=== PATIENT | female | born 1985 | race Caucasian/White ===

== ENCOUNTER 2018-09-14 17:39 | Emergency (ER) | payer MEDICAID, SELFPAY ==
[2018-09-14 17:41] VITALS: BP 135/72; PULSE 118; RESP 20; TEMP 36.6; O2SAT 98; BMI 24.9
--- NOTE | 2018-09-14 17:45 | EKG12_ITS ---
Test Reason : SOB Blood Pressure : / mmHG Vent. Rate : 113 BPM Atrial Rate : 113 BPM P-R Int : 156 ms QRS Dur : 088 ms QT Int : 340 ms P-R-T Axes : 060 049 -03 degrees QTc Int : 466 ms Sinus tachycardia Nonspecific T wave abnormality Abnormal ECG Confirmed by MIHAELA GLOVER, BROOKLYNN ([id number]), desk editor DUC CUELLAR ([id number]) on 09/17/2018 1:37:38 PM Referred By: Confirmed By:BROOKLYNN CHAIREZ MD
--- NOTE | 2018-09-14 17:46 | RAD_ITS ---
STUDY: X-RAY CHEST REASON FOR EXAM: Female, 33 years old. Previous PE. Short of breath. TECHNIQUE: Frontal and lateral views of the chest. COMPARISON: None. FINDINGS: The lungs are clear and expanded. There is no demonstrated pleural abnormality. Normal size heart. Normal mediastinum and chandana. Normal visualized pulmonary arteries. Normal visualized aortic arch and descending thoracic aorta. Normal visualized thoracic spine. Normal visualized ribs, clavicles, and shoulders. There is no demonstrated abnormality of the visualized soft tissue structures of the upper abdomen. RAD/Chest PA and Lateral IMPRESSION: Normal x-ray examination of the chest. Electronically Signed: Ashok Santos MD at 18:24 EST , Service support ,
--- NOTE | 2018-09-14 17:52 | NURSING ---
NO OLD EKGS
--- NOTE | 2018-09-14 18:23 | CT_ITS ---
STUDY: CTA CHEST REASON FOR EXAM: Female, 33 years old. Shortness of breath RADIATION DOSAGE (If Supplied By Facility): CTDIvol = ( 8.38 ) mGy, DLP = ( 343.98 ) mGycm TECHNIQUE: The examination was performed with the intravenous administration of 100ML ml of Isovue 370 contrast material. Post-processing of the angiographic images was performed, with multiplanar reformation and 3D reconstruction. Individualized dose optimization techniques were used for this CT. COMPARISON: None. FINDINGS: Normal enhancement of the main pulmonary artery and right and left pulmonary arteries. Normal enhancement of the bilateral peripheral pulmonary arteries. There is no demonstrated pulmonary embolism. Normal thoracic aorta and visualized great vessels. There is no demonstrated aortic dissection. Normal heart and pericardium. Normal mediastinum. Normal hilar regions. Normal visualized trachea and bronchi. The lungs are well expanded. Focal peripheral right basilar 2 cm nodular density in the posterior sulcus, possibly due to focal nodular type scarring or atelectasis/consolidation. A neoplastic lesion is less likely but cannot be completely excluded. Follow-up is recommended. Normal pleura. Normal chest wall structures. Normal osseous structures. Normal visualized upper abdomen. CT/CTA Chest W/WO Contrast IMPRESSION: No demonstrated pulmonary embolism or arterial dissection. Focal peripheral right basilar 2 cm nodular density in the posterior sulcus, possibly due to focal nodular type scarring or atelectasis/consolidation. A neoplastic lesion is less likely but cannot be completely excluded. Follow-up is recommended. Electronically Signed: Avila Hernandez DO at 20:02 EST Tel [phone], Service support ,
[2018-09-14 18:43] LABS: Absolute Neutrophil Count 4.6 X10^3/uL (2.0-7.7); Basophil# 0.01 X10^3/uL; Basophil% 0.1 % (0-1); Eosinophil# 0.02 X10^3/uL; Eosinophils% 0.3 % (0-5); Hematocrit 42.9 % (37-47); Hemoglobin 14.4 g/dl (12.0-15.0); Lymphocyte % 26.6 % (19-41); Mean Corp Hgb Conc 33.6 g/gl (32-36); Mean Corpuscular Hgb 30.4 pg (27.0-32.0); Mean Corpuscular Volume 90.7 fL (81-99); Mean Platelet Vol. 9.1 fl (6.2-12.0); Monocyte# 0.38 X10^3/uL; Monocyte% 5.6 % (0-10); Neutrophil # 4.55 X10^3/uL (2.7-7.7); Neutrophil % 67.4 % (47-70); Platelet Count 270 K/mm3 (150-450); RBC Distribution Width CV 14.3 % (11.6-14.6); RBC Distribution Width SD 47.4 fl (35.1-43.9); Red Blood Count 4.73 M/mm3 (4.2-5.4); White Blood Count 6.8 K/mm3 (4.4-11.0)
[2018-09-14] MEDS: 0.9% Normal Saline 1,000 ML 999 ML IV (18:44)
[2018-09-14] MEDS: LORazepam 1 MG Tablet PO (18:44)
[2018-09-14 18:45] LABS: POSITIVE COUNT NO; POSITIVE DIFFERENTIAL NO; POSITIVE MORPHOLOGY NO
[2018-09-14 18:50] VITALS: BP 108/84; PULSE 107; RESP 17; O2SAT 99
[2018-09-14 18:54] VITALS: RESP 17; O2SAT 100
[2018-09-14 19:15] LABS: Anion Gap 6 (5-15); BUN 8 mg/dL (7-18); BUN/Creat Ratio 9.3 RATIO (10-20); Chloride 104 mmol/L (98-107); Creatinine, Serum 0.86 mg/dL (0.55-1.02); EST Glomerular Filtration Rate 82 mL/min (>60); Est Glom Filt Rate - Afr Amer 99 mL/min (>60); Estimated Creatinine Clearance 71.52 ml/min; Glucose 87 mg/dL (74-106); Potassium 3.7 mmol/L (3.5-5.1); Sodium Level 138 mmol/L (136-145)
[2018-09-14 19:16] LABS: Pregnancy, Serum, hCG Quali. NEGATIVE Negative (0-9 Nonpreg)
[2018-09-14 19:51] VITALS: BP 120/91; PULSE 104; RESP 19; O2SAT 100
[2018-09-14 21:00] VITALS: BP 125/84; PULSE 107; RESP 20; O2SAT 98
--- NOTE | 2018-09-14 21:27 | ED.DEP ---
ED Disposition - Plan for ED Patient: Chief Complaint: Shortness of Breath Instructions: ED Palpitations Referrals: Pratik Trinh MD [Primary Care Provider] -
--- NOTE | 2018-09-14 23:28 | ED.VISSUMM ---
- ER Visit Summary Date of Service: 09/14/18 Chief Complaint: Palpitations, shortness of breath History of Present Illness: The patient is a 33 F presenting with palpitations, shortness of breath. She states the symptoms have been ongoing for several months. She was diagnosed with a PE in February and was started on Xarelto. She saw her primary care physician today and was sent to the ED for tachycardia. She has a history of anxiety. She is currently being weaned from her clonidine that she takes for anxiety. She was taking 6/day and is down to 3/day. She believes this may be contributing to her worsening anxiety. She denies chest pain. Denies fever or cough. Denies other complaints Physical Examination: Vitals are stable. Patient is afebrile. Alert no acute distress. HEENT exam is unremarkable. Neck is supple. Lungs are clear and equal bilaterally. Heart is regular and tachycardic Abdomen is soft nontender nondistended. Extremities are unremarkable. Skin is warm and dry. No focal neurologic deficit. Remainder of exam is unremarkable. Emergency Department Course and Treatment: EKG is tachycardia sinus tachycardia rate of 113 with nonspecific T wave abnormalities. CBC, chemistries unremarkable. Troponin is negative. HCG negative. Patient was given Ativan. Chest x-ray shows no acute process. CTA chest shows no demonstrated pulmonary embolism or arterial dissection. Focal peripheral right basilar 2 cm nodular density in the posterior sulcus, possibly due to focal nodular type scarring or atelectasis/consolidation. A neoplastic lesion is less likely but cannot be completely excluded. Follow-up is recommended. Patient is advised of these findings. She is advised to follow-up with her primary care physician. On reevaluation, she is feeling improved. She will follow-up with her primary care physician. Advised return to ED for worsening complaints. Disposition: Discharge home Impression: Palpitations This note was generated with [employer] dictation software. It may contain incorrect words, spelling, and punctuation that were not noted in review of the chart prior to signing ED Disposition - Plan for ED Patient: Disposition: Home or Assisted Living Chief Complaint: Shortness of Breath Instructions: ED Palpitations Referrals: Pratik Trinh MD [Primary Care Provider] -
== END 2018-09-14 21:45 | disposition home or self-care (01) ==
PROVIDERS: Emergency Provider Emergency Medicine; Family Provider Family Medicine; PCP Family Medicine
DX: R00.2 Palpitations (principal); Z86.711 Personal history of pulmonary embolism; Z79.02 Long term (current) use of antithrombotics/antiplatelets; F41.9 Anxiety disorder, unspecified; Z79.899 Other long term (current) drug therapy; Z72.0 Tobacco use
CPT/HCPCS: 71046; 71275; 80048; 84484; 84703; 85025; 93005; 94760; 96360; 96361; 99285; J7030; Q9967; A4216